=== PATIENT | female | born 1980 | race African-American/Black ===

== ENCOUNTER 2017-06-02 22:27 | Emergency (ER) | payer OTHER ==
[~2017-06-02] VITALS: Ht 167.6 cm; Wt 87.7 kg
[2017-06-02 22:30] VITALS: Ht 167.6 cm; Wt 87.7 kg
--- NOTE | 2017-06-03 00:01 | ERD ---
ER Documentation Chief Complaint Chief Complaint vag bleeding today, denies HPI 36-year-old female, presents to the emergency department complaining of 3 months of mild vaginal spotting associated with mild intermittent cramping pelvic pain. The patient has had multiple negative tests at home. Denies fevers, chills, abdominal pain, no vaginal discharge. ROS A 12-point review of systems was performed and negative other than presented in the history of present illness. SYSTEMIC symptoms: no fever, chills, no night sweats, no weight loss EYE symptoms: No blurred vision, no eye discharge OTOLARYNGEAL symptoms: No hearing loss. No ear pain, no sore throat CARDIOVASCULAR symptoms: No chest pain or discomfort, no palpitations. PULMONARY symptoms: No dyspnea, no cough, no wheezing. GASTROINTESTINAL symptoms: No abdominal pain, no nausea, no vomiting, no diarrhea MUSCULOSKELETAL symptoms: No arthralgias, no muscle aches. NEUROLOGY symptoms: No confusion, no syncope, no numbness or tingling. SKIN: No rashes Medications Home Meds Active Scripts Ibuprofen* (Motrin*) 600 Mg Tab, 600 MG PO Q6H Y for PAIN AND OR ELEVATED TEMP, #30 TAB Prov:NELSY BOYD MD 06/03/17 Allergies Allergies: Coded Allergies: No Known Allergy (Unverified , 06/02/17) PMhx/Soc Medical and Surgical Hx: pt denies Surgical Hx Hx Neurological Disorder: No Hx Respiratory Disorders: No Hx Cardiac Disorders: Yes (HTN) Hx Psychiatric Problems: No Hx Miscellaneous Medical Probl: Yes (DM, CHLAMYDIA) Hx Alcohol Use: Yes Hx Substance Use: Yes (MARIJUANA) Hx Tobacco Use: No Smoking Status: Never smoker Physical Exam Vitals Vital Signs Date Time Temp Pulse Resp B/P Pulse Ox O2 Delivery O2 Flow Rate FiO2 06/02/17 22:30 97.4 98 20 154/79 98 Physical Exam Patient is in no acute distress, vital signs stable. Alert and fully oriented. EYES: PERRLA, EOMI, Sclera and conjunctiva appear normal. EARS: Canals clear, tympanic membranes WNL THROAT: Normal oropharynx. NECK: Supple, No lymphadenopathy. Full ROM without pain or tenderness. HEART: RRR, no rubs, murmurs, clicks or gallops. LUNGS: Clear to auscultation. ABDOMEN: Soft, non-tender without masses or hepatosplenomegaly. EXTREMITIES: No edema bilaterally. BACK: Full ROM, no deformity, normal back exam NEURO: Cranial nerves grossly intact, no motor or sensory deficit Results 24 hrs Laboratory Tests Test 06/03/17 00:19 Bedside Urine pH (LAB) 7.0 Bedside Urine Protein (LAB) Negative Bedside Urine Glucose (UA) >=1.0% Bedside Urine Ketones (LAB) Negative Bedside Urine Blood 1+ Bedside Urine Nitrite (LAB) Negative Bedside Urine Leukocyte Esterase (L Negative [place] [id number] Radiology Main Line: [phone] DIAGNOSTIC IMAGING REPORT Patient: PRAKASH NICOLE : 1980 Age: 36 Sex: F MR #: [id number] DOS: 06/03/17 2348 Ordering MD: NELYS BOYD MD Location: [facility] Room/Bed: PROCEDURE: US Pelvis. CLINICAL INDICATION: Pelvic pain, abnormal uterine bleeding. Last menstrual period 05/26/2017 TECHNIQUE: Multiple sonographic images of the pelvis were obtained utilizing a transabdominal and endovaginal technique. The images were reviewed on a PACS workstation. COMPARISON: None. FINDINGS: The uterus is retroverted and measures 7.2 x 4 x 5 cm and is unremarkable. The thickness of the endometrium equals 3.4 mm. The right ovary measures 3.1 x 2.3 x 2.6 cm and is unremarkable. The left ovary measures 3.8 x 3 x 2.3 cm and is unremarkable. Color flow and spectral analysis demonstrates normal arterial flow in both ovaries. No adnexal mass or free intrapelvic fluid is seen. IMPRESSION: No abnormality seen. Please see above. RPTAT: HJES .Donn Spring MD, MD Date Time Electronically viewed and signed by .Donn Spring MD, MD on 06/03/2017 01:25 .S/ CC: NELSY BOYD MD Procedures/MDM 36-year-old female, previously healthy, presents to the emergency department complaining of mild intermittent vaginal spotting for 3 months, test negative. Vital signs stable, Physical exam unremarkable. Differential diagnosis include but not limited to: , menopause, anovulatory bleeding, polyps, uterine fibroid, endometrial hyperplasia. Radiology: Normal pelvic ultrasound Physical examination and clinical presentation consistent most likely with abnormal uterine bleeding. During the ED course the patient remained stable, no new complaints. Results and clinical impression discussed with patient who agrees with management. The patient is stable to be treated outpatient and will be discharged home with a Rx for ibuprofen, some side effects of prescribed medications (headache, rash, nausea, vomiting, diarrhea, drowsiness, habituation , bleeding, hypertension, interactions with other medications) were reviewed. The patient was instructed to follow up with the primary care provider in the next 48h. If symptoms persist, worsen or new symptoms develop, then patient should return to the ED immediately. Instructions explained and given directly by me to the patient with acknowledgment and demonstrated understanding. Disclaimer: Inadvertent spelling and grammatical errors are likely due to EHR/ dictation software use and do not reflect on the overall quality of patient care. Also, please note that the electronic time recorded on this note does not necessarily reflect the actual time of the patient encounter. Departure Diagnosis: Primary Impression: Abnormal uterine bleeding (AUB) Condition: Stable Additional Instructions: Call your primary care doctor TOMORROW for an appointment during the next 1-2 days. See the doctor sooner or return here if your condition worsens before your appointment time. Thank you very much for allowing us to participate in your care. Your health and safety is our top priority at [facility]. Have prescriptions filled and follow precisely the directions on the label. Follow-up with primary care provider during the next 4 days and bring all the information and medications prescribed. If illness has not improved in 2 days, then make an appointment with primary care provider. If the provider is unavailable, return to the Emergency Department immediately. NELSY BOYD MD Jun 03, 2017 00:01
[2017-06-03 00:18] LABS: URINE BLOOD (Dip) POC 1+ (NEGATIVE)
--- NOTE | 2017-06-03 01:25 | RADRPT ---
PROCEDURE: US Pelvis. CLINICAL INDICATION: Pelvic pain, abnormal uterine bleeding. Last menstrual period 05/26/2017 TECHNIQUE: Multiple sonographic images of the pelvis were obtained utilizing a transabdominal and endovaginal technique. The images were reviewed on a PACS workstation. COMPARISON: None. FINDINGS: The uterus is retroverted and measures 7.2 x 4 x 5 cm and is unremarkable. The thickness of the endo metrium equals 3.4 mm. The right ovary measures 3.1 x 2.3 x 2.6 cm and is unremarkable. The left ov radha measures 3.8 x 3 x 2.3 cm and is unremarkable. Color flow and spectral analysis demonstrates no rmal arterial flow in both ovaries. No adnexal mass or free intrapelvic fluid is seen. IMPRESSION: No abnormality seen. Please see above. RPTAT: HJES .Donn Spring MD, MD Date Time Electronically viewed and signed by .Donn Spring MD, on 06/03/2017 01:25 .S/
[2017-06-03] MEDS ORDERED: IBUP-1542 PO (01:44)
[2017-06-03 02:31] VITALS: BP 146/78; PULSE 92; RESP 20; TEMP 97.4
== END 2017-06-03 02:33 | disposition home or self-care (01) ==
LOC: FTE 22:27
DX: N93.9 Abnormal uterine and vaginal bleeding, unspecified (principal); E11.9 Type 2 diabetes mellitus without complications; I10 Essential (primary) hypertension; R10.2 Pelvic and perineal pain
CPT/HCPCS: 76830; 76856; 81003; Z7502

== ENCOUNTER 2017-07-04 05:40 | Emergency (ER) | END 2017-07-04 11:52 | disposition home or self-care (01) ==

== ENCOUNTER 2017-09-09 20:38 | Emergency (ER) | END 2017-09-10 01:22 | disposition home or self-care (01) ==

== ENCOUNTER 2017-12-10 21:09 | Emergency (ER) | END 2017-12-11 01:55 | disposition home or self-care (01) ==

== ENCOUNTER 2017-12-16 12:36 | Emergency (ER) | END 2017-12-16 14:38 | disposition home or self-care (01) ==

== ENCOUNTER 2017-12-29 21:02 | Emergency (ER) | END 2017-12-30 00:38 | disposition home or self-care (01) ==

== ENCOUNTER 2018-02-01 10:43 | Emergency (ER) | END 2018-02-01 13:47 | disposition home or self-care (01) ==

== ENCOUNTER 2018-03-11 09:06 | Inpatient (IN) | END 2018-03-11 09:10 | disposition still patient (30) | DRG 770 ==

== ENCOUNTER 2018-03-11 09:08 | Inpatient (IN) | END 2018-03-15 16:30 | disposition home or self-care (01) | DRG 797 ==

== ENCOUNTER 2018-03-22 19:10 | Emergency (ER) | END 2018-03-22 23:49 | disposition home or self-care (01) ==

== ENCOUNTER 2018-03-24 19:56 | Observation (INO) | END 2018-03-25 20:00 | disposition home or self-care (01) ==

== ENCOUNTER 2018-06-28 13:34 | Emergency (ER) | payer OTHER ==
[~2018-06-28] VITALS: Ht 167.6 cm; Wt 83.2 kg
[~2018-06-28 13:34] MED LIST: DOCU-144 PO; FER325 PO; INSU100I27 SQ; LABE200T25 PO; LANT3I SC; NITR-58 PO
[2018-06-28 13:41] VITALS: BP 151/83; PULSE 100; RESP 18; Ht 167.6 cm; Wt 83.2 kg
[2018-06-28] MEDS ORDERED: ACYC800T5 PO (14:53)
--- NOTE | 2018-06-28 15:14 | ERD ---
ER Documentation Chief Complaint Chief Complaint bilateral vaginal labia minora pain/swelling X 2 days HPI 37-year-old female presenting with irritation to her labia. Patient states is been going on for the last few days. She noted some bumps on her labia today. She has a history of herpes. No new sexual partners. No vaginal discharge. No itching. Denies other medical problems. NKDA. Surgical history denies. Social history denies ROS All systems reviewed and are negative except as per history of present illness. Medications Home Meds Active Scripts Acyclovir* (Zovirax*) 800 Mg Tablet, 800 MG PO 5 TIMES DAILY for 7 Days, TAB Prov:SHAWNA GARRETT PA-C 06/28/18 Labetalol Hcl* (Labetalol Hcl*) 200 Mg Tablet, 300 MG PO BID for 30 Days, #90 TAB Prov:CHARLEEN MCFARLANE MD 03/25/18 Reported Medications Nitrofurantoin Monohyd Macrocr* (Macrobid*) 100 Mg Capsr, 100 MG PO BID, CAP FOR 7 DAYS, START DATE 03/23/18 03/24/18 Ferrous Sulfate* (Ferrous Sulfate*) 325 Mg Tabec, 325 MG PO BID, TAB 03/24/18 Docusate Sodium* (Colace*) 100 Mg Capsule, 100 MG PO BID, #60 CAP 03/24/18 Insulin Glargine* (Lantus*) 100 Unit/Ml Soln, 13 UNIT SC QHS, #1 VIAL 03/24/18 Insulin Detemir (Levemir Flextouch) 100 Unit/1 Ml Insuln.pen, 0 SQ BID, EA INJECT 20 UNITS-QAM, AND 10 UNITS-QPM 03/24/18 Allergies Allergies: Coded Allergies: No Known Allergy (Unverified , 03/24/18) PMhx/Soc History of Surgery: No Anesthesia Reaction: No Hx Neurological Disorder: No Hx Respiratory Disorders: Yes (Bronchitis ) Hx Cardiac Disorders: Yes (HTN) Hx Psychiatric Problems: No Hx Miscellaneous Medical Probl: No Hx Alcohol Use: Yes (Occasionally) Hx Substance Use: Yes (Marijuana ) Hx Tobacco Use: No Smoking Status: Current every day smoker FmHx Family History: No diabetes, No coronary disease, No other Physical Exam Vitals Vital Signs Date Temp Pulse Resp B/P (MAP) Pulse Ox O2 O2 Flow FiO2 Time Delivery Rate 06/28/18 97.8 100 18 151/83 98 13:41 (105) Physical Exam GENERAL: The patient is well-appearing, well-nourished, in no acute distress CHEST: Clear to auscultation bilaterally. There are no rales, wheezes or rhonchi. HEART: Regular rate and rhythm. No murmurs, clicks, rubs or gallops. No S3 or S4. SKIN: Open sores noted around the labia. No discharge. No swelling or erythema. No pustules. Results 24 hrs Laboratory Tests Test 06/28/18 14:25 POC Beta HCG, Qualitative NEGATIVE Procedures/MDM MDM: 37-year-old female presenting with irritation to the labia. I have low alaina picion for bacterial infection. Patient has herpes flare. I have low suspicion for acute abdominal emergency. Patient is discharged stricter precautions and told to follow-up with primary care within 1-2 days for close evaluation. To the ER. All questions answered at discharge Departure Diagnosis: Primary Impression: Herpes Condition: Stable Patient Instructions: Herpes Genitalis, Hsv: Type Ii Additional Instructions: FOLLOW UP WITH YOUR PRIMARY CARE PHYSICIAN TOMORROW.Return to this facility if you are not improving as expected. SHAWNA GARRETT PA-C Jun 28, 2018 15:14
== END 2018-06-28 15:20 | disposition home or self-care (01) ==
LOC: FTE 13:34
DX: A60.09 Herpesviral infection of other urogenital tract (principal); I10 Essential (primary) hypertension; F17.210 Nicotine dependence, cigarettes, uncomplicated; E11.9 Type 2 diabetes mellitus without complications; Z79.4 Long term (current) use of insulin
CPT/HCPCS: 81025; Z7502; 99283

== ENCOUNTER 2018-07-05 13:53 | Emergency (ER) | payer OTHER ==
[~2018-07-05] VITALS: Wt 89.0 kg
[~2018-07-05 13:53] MED LIST changes: +ACYC800T5 PO
[2018-07-05] MEDS ORDERED: SOD CHLORIDE 0.9% IV ONE (15:30)
[2018-07-05] MEDS ORDERED: ADMELOG SUBCUTANE (15:51)
[2018-07-05] MEDS ORDERED: LABE200T25 PO ×2 (15:52→16:53)
[2018-07-05] MEDS ORDERED: LEVO50TA7 PO (15:52)
[2018-07-05] MEDS ORDERED: INSU100I33 SC ×2 (15:52→16:53)
[2018-07-05] MEDS ORDERED: GABA100C14 PO (16:53)
[2018-07-05] MEDS ORDERED: INSULIN LISPRO 100 UNIT/ML SC (16:53)
[2018-07-05] MEDS ORDERED: [UNRECOGNIZED DRUG - CODE] MC (16:53)
[2018-07-05] MEDS ORDERED: INSULIN LISPRO 100 UNIT/ML VIAL SC ONE (17:00)
--- NOTE | 2018-07-05 17:02 | ERD ---
ER Documentation Chief Complaint Chief Complaint NUMBNESS JASMYNE FEET X MOS, PAIN RIGHT LEG,OFF MEDS X 1 MOS, HTN,DM HPI This a very pleasant 38-year-old female history of hypertension and diabetes who presents with multiple issues. She states that she has not been taking her blood pressure or diabetes medications for at least 1-2 months. The patient states that insurance issues and financial issues of the reasoning. The patient also describes a stocking and glove paresthesia and shooting electric pain to the bilateral feet right greater than left. This is also been for approximately 2 months. She denies any chest pain or shortness of breath, no headache. ROS All systems reviewed and are negative except as per history of present illness. Medications Home Meds Active Scripts Gabapentin* (Gabapentin*) 100 Mg Capsule, 100 MG PO TID, #90 CAP Prov:CRISTA COHEN MD 07/05/18 Blood-Glucose Meter (FREESTYLE SYSTEM) 1 Each Kit, EACH MC, #1 Prov:CRISTA COHEN MD 07/05/18 Labetalol Hcl* (Labetalol Hcl*) 200 Mg Tablet, 200 MG PO BID for 30 Days, TAB Prov:CRISTA COHEN MD 07/05/18 Insulin Glargine,Hum.rec.anlog (Basaglar Kwikpen U-100) 100 Unit/1 Ml Insuln.pen, 15 UNIT SC QAM for 30 Days, EA Prov:CRISTA COHEN MD 07/05/18 [Admelog 100UNIT/Ml] No Conflict Check, 5 UNIT SC TID PRN for Sliding scale protocol for 30 Days Prov:CRISTA COHEN MD 07/05/18 Reported Medications Levothyroxine Sodium* (Levothyroxine Sodium*) 50 Mcg Tablet, 50 MCG PO BEFORE BREAKFAST, #30 TAB 07/05/18 Labetalol Hcl* (Labetalol Hcl*) 200 Mg Tablet, 200 MG PO BID, TAB 07/05/18 Insulin Glargine,Hum.rec.anlog (Basaglar Kwikpen U-100) 100 Unit/1 Ml Insuln.pen, 10 UNITS SC QAM, EA 07/05/18 [Admelog] 5 UNIT No Conflict Check, 5 UNITS SUBCUTANE AC A 07/05/18 Discontinued Reported Medications Nitrofurantoin Monohyd Macrocr* (Macrobid*) 100 Mg Capsr, 100 MG PO BID, CAP FOR 7 DAYS, START DATE 03/23/18 03/24/18 Ferrous Sulfate* (Ferrous Sulfate*) 325 Mg Tabec, 325 MG PO BID, TAB 03/24/18 Docusate Sodium* (Colace*) 100 Mg Capsule, 100 MG PO BID, #60 CAP 03/24/18 Insulin Glargine* (Lantus*) 100 Unit/Ml Soln, 13 UNIT SC QHS, #1 VIAL 03/24/18 Insulin Detemir (Levemir Flextouch) 100 Unit/1 Ml Insuln.pen, 0 SQ BID, EA INJECT 20 UNITS-QAM, AND 10 UNITS-QPM 03/24/18 Discontinued Scripts Acyclovir* (Zovirax*) 800 Mg Tablet, 800 MG PO 5 TIMES DAILY for 7 Days, TAB Prov:SHAWNA GARRETT PA-C 06/28/18 Labetalol Hcl* (Labetalol Hcl*) 200 Mg Tablet, 300 MG PO BID for 30 Days, #90 TAB Prov:CHARLEEN MCFARLANE MD 03/25/18 Allergies Allergies: Coded Allergies: No Known Allergy (Unverified , 07/05/18) PMhx/Soc History of Surgery: Yes (D&C) Anesthesia Reaction: No Hx Neurological Disorder: No Hx Respiratory Disorders: Yes (Bronchitis ) Hx Cardiac Disorders: Yes (HTN) Hx Psychiatric Problems: No Hx Miscellaneous Medical Probl: Yes (DM type 2) Hx Alcohol Use: Yes (Occasionally) Hx Substance Use: Yes (Marijuana ) Hx Tobacco Use: Yes Smoking Status: Current some day smoker FmHx Family History: diabetes Physical Exam Vitals Vital Signs Date Temp Pulse Resp B/P (MAP) Pulse Ox O2 O2 Flow FiO2 Time Delivery Rate 07/05/18 98.2 90 18 174/103 99 14:00 (126) Physical Exam General: Well developed, well nourished, no acute distress Head: Normocephalic, atraumatic. Eyes: EOM intact ENT: Moist mucous membranes Neck: Full ROM Respiratory: No respiratory distress Cardiovascular: Well perfused distally Abdominal: Nondistended : Deferred MSK: No edema, no unilateral swelling, 5/5 strength well-perfused bilateral feet Neurologic: Alert and oriented, moving all extremities, normal speech, steady gait Skin: No rash Psych: Normal mood Result Diagram: 07/05/18 1529 07/05/18 1529 Results 24 hrs Laboratory Tests Test 07/05/18 15:17 07/05/18 15:20 07/05/18 15:29 07/05/18 15:35 Bedside Glucose 345 mg/dL Blood Gas Blood venous Specimen Source Arterial Blood 07/05/2018 3:20: Date Drawn 20 PM Arterial Blood VENOUS LINE Gas Puncture Site Elmer Test N/A Venous Blood pH 7.351 Venous Blood 45.5 mmHG pCO2 (Temp Corrected) Venous Blood pO2 20.4 mmHG (Temp Corrected) Venous Blood 24.6 mmol/L HCO3 Venous Blood 30.9 mmHG Oxygen Saturation Venous Blood -1.2 mmol/L Base Excess Venous Blood 12.0 g/dl Total Hemoglobin Venous Blood 30.6 % Oxyhemoglobin Venous Blood 0.8 % Methemoglobin Carboxyhemoglobi 0.2 % n Blood Gas 37.0 C Temperature Blood Gas ROOM AIR Modality FiO2 21.0 % Blood Gas M.D. Notified Whom Blood Gas 07/05/2018 3:28: Notified Time 56 PM White Blood 9.0 10^3/ul Count Red Blood Count 5.00 10^6/ul Hemoglobin 12.1 g/dl Hematocrit 38.4 % Mean Corpuscular 76.8 fl Volume Mean Corpuscular 24.2 pg Hemoglobin Mean Corpuscular 31.5 g/dl Hemoglobin Darling nt Red Cell 16.4 % Distribution Width Platelet Count 399 10^3/UL Mean Platelet 10.6 fl Volume Immature 0.300 % Granulocytes % Neutrophils % 68.1 % Lymphocytes % 21.1 % Monocytes % 8.3 % Eosinophils % 1.8 % Basophils % 0.4 % Nucleated Red 0.0 /100WBC Blood Cells % Immature 0.030 10^3/ul Granulocytes # Neutrophils # 6.1 10^3/ul Lymphocytes # 1.9 10^3/ul Monocytes # 0.7 10^3/ul Eosinophils # 0.2 10^3/ul Basophils # 0.0 10^3/ul Nucleated Red 0.0 10^3/ul Blood Cells # Urine Color STRAW Urine Clarity CLEAR Urine pH 5.0 Urine Specific 1.035 [place] Urine Ketones NEGATIVE mg/dL Urine Nitrite NEGATIVE mg/dL Urine Bilirubin NEGATIVE mg/dL Urine NEGATIVE mg/dL Urobilinogen Urine Leukocyte NEGATIVE Meron/ul Esterase Urine 1 /HPF Microscopic RBC Urine 1 /HPF Microscopic WBC Urine Hemoglobin 1+ mg/dL Urine Glucose 3+ mg/dL Urine Total 1+ mg/dl Protein Sodium Level 134 mmol/L Potassium Level 4.7 mmol/L Chloride Level 101 mmol/L Carbon Dioxide 24 mmol/L Level Anion Gap 9 Blood Urea 12 mg/dl Nitrogen Creatinine 0.52 mg/dl Est Glomerular > 60 mL/min Filtrat Rate mL/min Glucose Level 356 mg/dl Calcium Level 9.6 mg/dl Phosphorus Level 4.0 mg/dl Magnesium Level 1.9 mg/dl POC Beta HCG, NEGATIVE Qualitative Test 07/05/18 16:49 Bedside Glucose 239 mg/dL Current Medications Medications Dose Sig/Emma Start Time Status Last (Trade) Ordered Route PRN Stop Time Admin Dose Reason Admin Sodium 890 ml @ ONCE ONCE 07/05/18 DC 07/05/18 Chloride 890 mls/hr IV 15:30 15:34 07/05/18 16:29 Insulin 10 unit ONCE ONCE 07/05/18 07/05/18 Human SC 17:00 16:55 Lispro 07/05/18 17:01 (Humalog) Procedures/MDM LAB INTERPRETATION: * Hyperglycemia without evidence of diabetic ketoacidosis MEDICAL DECISION MAKING: Patient's blood pressure was elevated (>120/80) but appears stable without evidence of hypertensive emergency or urgency. The patient was counseled about the risks of hypertension and urged to pursue outpatient monitoring and therapy within a week with their primary care physician. Patient is hyperglycemic and needs DKA screening the low clinical concern for this process. ER COURSE: * My clinical pharmacy manager has evaluated the patient and called [facility] pharmacy to figure out which medication she takes is the patient does not recall the types of medication. Medications have been refilled that are consistent with the patient's insurance at this point. * Patient's blood pressure is improving. No indication to rapidly lower at this time given chronicity of elevation. Risks outweigh the benefits. * Patient will be restarted on labetalol. * Humalog provided for hyperglycemia CONSULTATION: [None] DISPOSITION PLAN: The patient does not have an identifiable emergent medical condition that warrants inpatient hospitalization at this time. The patient is deemed safe for discharge with outpatient follow-up. We discussed follow up with the patient's primary care doctor within 24 to 48 hours as needed. We also discussed return to the emergency room for worsening symptoms or worsening condition. Outpatient referral: [None required] Discharge meds: See EMR I added gabapentin for the patient's peripheral neuropathy Departure Diagnosis: Primary Impression: Diabetic neuropathy Diabetes mellitus type: other specified (including FERNANDO) Diabetes mellitus complication detail: with other neurological complication Qualified Codes: E13.49 - Other specified diabetes mellitus with other diabetic neurological complication Additional Impressions: Asymptomatic hypertensive urgency Hyperglycemia Condition: Stable Patient Instructions: Hyperglycemia (High Blood Sugar) Additional Instructions: Call your primary care doctor TOMORROW for an appointment during the next 1 WEEK.Tell the racing secretary that you were referred from this facility.See the doctor sooner or return here if your condition worsens before your appointment time. CRISTA COHEN MD Jul 05, 2018 17:02
[2018-07-05 17:05] VITALS: BP 185/102; PULSE 89; RESP 16
== END 2018-07-05 17:11 | disposition home or self-care (01) ==
LOC: E/R 13:53
DX: E13.49 Other specified diabetes mellitus with other diabetic neurological complication (principal); I16.0 Hypertensive urgency; I10 Essential (primary) hypertension; F17.210 Nicotine dependence, cigarettes, uncomplicated; Z79.4 Long term (current) use of insulin
CPT/HCPCS: 36415; 80048; 81001; 81025; 82803; 82962; 83735; 84100; 85025; 96372; J1815; J7030; Z7502

== ENCOUNTER 2018-08-29 12:31 | Emergency (ER) | payer OTHER ==
[~2018-08-29] VITALS: Ht 167.6 cm; Wt 77.3 kg
[~2018-08-29 12:31] MED LIST changes: -ACYC800T5 PO; +ADMELOG SUBCUTANE; -DOCU-144 PO; -FER325 PO; +GABA100C14 PO; -INSU100I27 SQ; +INSU100I33 SC; +INSULIN LISPRO 100 UNIT/ML SC; -LANT3I SC; +LEVO50TA7 PO; -NITR-58 PO; +[UNRECOGNIZED DRUG - CODE] MC
[2018-08-29 12:36] VITALS: Ht 167.6 cm; Wt 77.3 kg
[2018-08-29] MEDS ORDERED: FUROSEMIDE 40 MG INJ IV STA (13:12)
[2018-08-29] MEDS ORDERED: INSU100I12 SQ (14:22)
[2018-08-29] MEDS ORDERED: METF-849 PO (14:23)
[2018-08-29] MEDS ORDERED: LISI-471 PO (15:02)
--- NOTE | 2018-08-29 15:09 | ERD ---
ER Documentation Chief Complaint Chief Complaint Leg swelling possible HIV exposure HPI This is a 38-year-old female who is here because she has chronic lower extremity edema off and on. 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 She says at the end of the night she has a lot of leg swelling and that when she lays flat for a while like with sleeping she will wake up with legs being relatively normal. She says this is been going on for years but lately has been getting a bit worse and will not resolve to baseline in the morning. She has no chest pain shortness of breath abdominal pain dyspnea on exertion orthopnea. She also found that her boyfriend had an HIV medication in his pants she is asking that we test her here. She does have unprotected sex with him and she has not confronted the boyfriend yet about finding the medication in his pocket ROS All systems reviewed and are negative except as per history of present illness. Medications Home Meds Active Scripts Lisinopril* (Lisinopril*) 20 Mg Tablet, 20 MG PO DAILY, #30 TAB Prov:MOUSTAPHA BOTELLO DO 08/29/18 Blood-Glucose Meter (FREESTYLE SYSTEM) 1 Each Kit, EACH MC, #1 Prov:CRISTA COHEN MD 07/05/18 Labetalol Hcl* (Labetalol Hcl*) 200 Mg Tablet, 200 MG PO BID for 30 Days, TAB Prov:CRISTA COHEN MD 07/05/18 Reported Medications Metformin* (Glucophage*) 500 Mg Tab, 500 MG PO WITH BREAKFAST DINNE, #30 TAB 08/29/18 Insulin Lispro (Humalog Kwikpen U-100) 100 Unit/1 Ml Insuln.pen, 0-12 UNIT SQ PER SLIDING SCALE, EA 08/29/18 Labetalol Hcl* (Labetalol Hcl*) 200 Mg Tablet, 200 MG PO BID, TAB 07/05/18 Insulin Glargine,Hum.rec.anlog (Basaglar Kwikpen U-100) 100 Unit/1 Ml Insuln.pen, 10 UNITS SC QAM, EA 07/05/18 Discontinued Reported Medications Levothyroxine Sodium* (Levothyroxine Sodium*) 50 Mcg Tablet, 50 MCG PO BEFORE BREAKFAST, #30 TAB 07/05/18 [Admelog] 5 UNIT No Conflict Check, 5 UNITS SUBCUTANE AC A 07/05/18 Discontinued Scripts Gabapentin* (Gabapentin*) 100 Mg Capsule, 100 MG PO TID, #90 CAP Prov:CRISTA COHEN MD 07/05/18 Insulin Glargine,Hum.rec.anlog (Basaglar Kwikpen U-100) 100 Unit/1 Ml Insuln.pen, 15 UNIT SC QAM for 30 Days, EA Prov:CRISTA COHEN MD 07/05/18 [Admelog 100UNIT/Ml] No Conflict Check, 5 UNIT SC TID PRN for Sliding scale protocol for 30 Days Prov:CRISTA COHEN MD 07/05/18 Allergies Allergies: Coded Allergies: No Known Allergy (Unverified , 08/29/18) PMhx/Soc History of Surgery: Yes (D&C) Anesthesia Reaction: No Hx Neurological Disorder: No Hx Respiratory Disorders: Yes (Bronchitis ) Hx Cardiac Disorders: Yes (HTN) Hx Psychiatric Problems: No Hx Miscellaneous Medical Probl: Yes (DM) Hx Alcohol Use: Yes (Occasionally) Hx Substance Use: No Hx Tobacco Use: No Smoking Status: Never smoker FmHx Family History: No coronary disease Physical Exam Vitals Vital Signs Date Temp Pulse Resp B/P (MAP) Pulse Ox O2 O2 Flow FiO2 Time Delivery Rate 08/29/18 97.6 97 21 178/113 100 Nasal 2.0 14:30 (134) Cannula 08/29/18 98 16 176/114 99 Nasal 2.0 13:35 (134) Cannula 08/29/18 Nasal 2 13:00 Cannula 08/29/18 97.6 99 20 191/100 100 12:36 (130) Physical Exam Const: Well-developed, well-nourished Head: Atraumatic, normocephalic Eyes: Normal Conjunctiva, PERRLA, EOMI, normal sclera, no nystagmus ENT: Normal External Ears, Nose and Mouth, moist mucus membranes. Neck: Full range of motion. No meningismus, no lymphadenopathy. Resp: Clear to auscultation bilaterally, no wheezing, rhonchi, rales Cardio: Regular rate and rhythm, no murmurs, S1 S2 present Abd: Soft, non tender x 4, non distended. Normal bowel sounds, no guard ing or rebound, no pulsitile abdominal masses or bruits Skin: No petechiae or rashes, no ecchymosis , no maculopapular rash Back: No midline or flank tenderness Ext: No cyanosis, mild edema to her feet, FROM x 4, normal inspection, neurovascularly intact x 4 Neur: Awake and alert, STR 5/5 x 4, sensation intact x 4, no focal findings, cerebellum intact Psych: Normal Mood and Affect Result Diagram: 08/29/18 1315 08/29/18 1315 Results 24 hrs Laboratory Tests Test 08/29/18 13:15 White Blood Count 8.2 10^3/ul Red Blood Count 5.07 10^6/ul Hemoglobin 12.4 g/dl Hematocrit 39.2 % Mean Corpuscular Volume 77.3 fl Mean Corpuscular Hemoglobin 24.5 pg Mean Corpuscular Hemoglobin Concent 31.6 g/dl Red Cell Distribution Width 16.5 % Platelet Count 374 10^3/UL Mean Platelet Volume 10.9 fl Immature Granulocytes % 0.500 % Neutrophils % 71.2 % Lymphocytes % 19.5 % Monocytes % 7.4 % Eosinophils % 0.9 % Basophils % 0.5 % Nucleated Red Blood Cells % 0.0 /100WBC Immature Granulocytes # 0.040 10^3/ul Neutrophils # 5.8 10^3/ul Lymphocytes # 1.6 10^3/ul Monocytes # 0.6 10^3/ul Eosinophils # 0.1 10^3/ul Basophils # 0.0 10^3/ul Nucleated Red Blood Cells # 0.0 10^3/ul Sodium Level 138 mmol/L Potassium Level 4.0 mmol/L Chloride Level 103 mmol/L Carbon Dioxide Level 26 mmol/L Anion Gap 9 Blood Urea Nitrogen 13 mg/dl Creatinine 0.56 mg/dl Est Glomerular Filtrat Rate mL/min > 60 mL/min Glucose Level 304 mg/dl Calcium Level 9.4 mg/dl Total Bilirubin 0.5 mg/dl Direct Bilirubin 0.00 mg/dl Indirect Bilirubin 0.5 mg/dl Aspartate Amino Transf (AST/SGOT) 21 IU/L Alanine Aminotransferase (ALT/SGPT) 23 IU/L Alkaline Phosphatase 127 IU/L B-Type Natriuretic Peptide 318 PG/ML Total Protein 7.0 g/dl Albumin 4.0 g/dl Globulin 3.00 g/dl Albumin/Globulin Ratio 1.33 HIV (1&2) Antibody NEGATIVE Current Medications Medications Dose Sig/Emma Start Time Status Last (Trade) Ordered Route PRN Stop Time Admin Dose Reason Admin Furosemide 40 mg ONCE STAT 08/29/18 DC 08/29/18 (Lasix) IV 13:12 13:35 08/29/18 13:13 Procedures/MDM Ordering MD: MOUSTAPHA BOTELLO DO Location: E/R Room/Bed: PROCEDURE: XR Chest. CLINICAL INDICATION: chest pain TECHNIQUE: Single frontal view of the chest was obtained COMPARISON: None FINDINGS: The heart and mediastinum are within normal limits. The lungs are clear. There is no pleural effusion or pneumothorax. RPTAT: AA IMPRESSION: No acute disease. .Enoc Arora MD, MD Date Time Electronically viewed and signed by .Enoc Arora MD, MD on 08/29/2018 13:53 .S/ CC: MOUSTAPHA BOTELLO DO [id number] Patient's HIV screen here is negative but I did discuss with her at length the need to follow-up with his testing and not to have sex with him anymore until she uncovers the true issue here with her boyfriend. I told her that she needs to be rechecked in 6 weeks 6 months and then 1 year. Patient is hypertensive here but asymptomatic she takes lisinopril but has not been taking it. I will give her a refill prescription for lisinopril. Discussed with her slightly elevated BNP and need to follow-up with primary because she needs an echocardiogram and that she may have uncontrolled hypertension leading to her swelling and a heart issue. Departure Diagnosis: Primary Impression: Pedal edema Additional Impression: Uncontrolled hypertension Condition: Stable Patient Instructions: Peripheral Edema, Bilateral, Hypertension, Established MOUSTAPHA BOTELLO DO Aug 29, 2018 15:09
[2018-08-29 15:45] VITALS: BP 145/105; PULSE 87; RESP 16
[2018-08-29] MEDS ORDERED: NICARDipine HCL 30 MG CAPSULE PO ONE (16:00)
== END 2018-08-29 15:45 | disposition home or self-care (01) ==
LOC: E/R 12:31
DX: M79.89 Other specified soft tissue disorders (principal); I10 Essential (primary) hypertension; E11.9 Type 2 diabetes mellitus without complications; Z79.4 Long term (current) use of insulin; Z20.6 Contact with and (suspected) exposure to human immunodeficiency virus [HIV]
CPT/HCPCS: 71045; 80053; 83880; 85025; 86703; 96374; J1940; Z7502; 93005

== ENCOUNTER 2018-09-10 02:10 | Emergency (ER) | payer OTHER ==
[~2018-09-10] VITALS: Ht 167.6 cm; Wt 80.9 kg
[~2018-09-10 02:10] MED LIST changes: -ADMELOG SUBCUTANE; -GABA100C14 PO; +INSU100I12 SQ; -INSULIN LISPRO 100 UNIT/ML SC; -LEVO50TA7 PO; +LISI-471 PO; +METF-849 PO
[2018-09-10 02:16] VITALS: BP 196/98; PULSE 95; RESP 20; Ht 167.6 cm; Wt 80.9 kg
--- NOTE | 2018-09-10 04:27 | ERD ---
ER Documentation Chief Complaint Chief Complaint VAGINAL PAIN, HX HSV, BELIEVES SHE IS HAVING A BREAKOUT HPI 38-year-old female, with history of genital HSV infection, presents to the emerg ency department, requesting treatment for a burning, erythematous, vesicular rash on her right labia that started 3 days ago. The patient denies dysuria, no fever, no abdominal pain, no vaginal discharge. ROS All systems reviewed and are negative except as per history of present illness. Medications Home Meds Active Scripts Hydrocodone/Acetaminophen ([place] 5-325 Tablet) 1 Each Tablet, 1 TAB PO QHS PRN for PAIN, #7 TAB Prov:NELSY BOYD MD 09/10/18 Acyclovir* (Zovirax*) 800 Mg Tablet, 800 MG PO 5 TIMES DAILY for 7 Days, TAB Prov:NELSY BOYD MD 09/10/18 Lisinopril* (Lisinopril*) 20 Mg Tablet, 20 MG PO DAILY, #30 TAB Prov:MOUSTAPHA BOTELLO DO 08/29/18 Blood-Glucose Meter (VurbSTYLE SYSTEM) 1 Each Kit, EACH MC, #1 Prov:CRISTA COHEN MD 07/05/18 Labetalol Hcl* (Labetalol Hcl*) 200 Mg Tablet, 200 MG PO BID for 30 Days, TAB Prov:CRISTA COHEN MD 07/05/18 Reported Medications Metformin* (Glucophage*) 500 Mg Tab, 500 MG PO WITH BREAKFAST DINNE, #30 TAB 08/29/18 Insulin Lispro (Humalog Kwikpen U-100) 100 Unit/1 Ml Insuln.pen, 0-12 UNIT SQ PER SLIDING SCALE, EA 08/29/18 Labetalol Hcl* (Labetalol Hcl*) 200 Mg Tablet, 200 MG PO BID, TAB 07/05/18 Insulin Glargine,Hum.rec.anlog (Basaglar Kwikpen U-100) 100 Unit/1 Ml Insuln.pen, 10 UNITS SC QAM, EA 07/05/18 Allergies Allergies: Coded Allergies: No Known Allergy (Unverified , 08/29/18) PMhx/Soc History of Surgery: Yes (D&C) Anesthesia Reaction: No Hx Neurological Disorder: No Hx Respiratory Disorders: Yes (Bronchitis ) Hx Cardiac Disorders: Yes (HTN) Hx Psychiatric Problems: No Hx Miscellaneous Medical Probl: Yes (DM) Hx Alcohol Use: Yes (Occasionally) Hx Substance Use: No Hx Tobacco Use: No Smoking Status: Never smoker Physical Exam Vitals Vital Signs Date Temp Pulse Resp B/P (MAP) Pulse Ox O2 O2 Flow FiO2 Time Delivery Rate 09/10/18 97.8 95 20 196/98 100 02:16 (130) Physical Exam Const: No acute distress Head: Atraumatic Eyes: Normal Conjunctiva ENT: Normal External Ears, Nose and Mouth. Neck: Full range of motion. No meningismus. Resp: Clear to auscultation bilaterally Cardio: Regular rate and rhythm, no murmurs Abd: Soft, non tender, non distended. Normal bowel sounds : Right labia with erythematous, vesicular coalescent rash. Skin: No petechiae or rashes Back: No midline or flank tenderness Ext: No cyanosis, or edema Neur: Awake and alert Psych: Normal Mood and Affect Results 24 hrs Current Medications Medications Dose Sig/Emma Start Time Status Last (Trade) Ordered Route PRN Stop Time Admin Dose Reason Admin Ondansetron 8 mg ONCE STAT 09/10/18 DC HCl (Zofran ODT 04:32 09/10/18 Odt) 04:33 Ondansetron 4 mg STK-MED 09/10/18 DC HCl (Zofran ONCE ODT 04:33 09/10/18 Odt) 04:34 Procedures/MDM Vital signs stable. Differential diagnosis considered include UTI, cystitis, yeast infection, vaginitis, bacterial vaginosis, pelvic inflammatory disease, STI's . Less likely malignancy or acute abdomen. During the ED course the patient remained stable, no new complaints. Results and clinical impression discussed with the patient who agrees with management. The patient is stable to be treated outpatient and will be discharged home; some side effects of prescribed medications (headache, rash, nausea, vomiting, diarrhea, drowsiness, habituation, bleeding, hypertension, interactions with other medications) were reviewed. Follow up with the primary care provider in the next 48h has been recommended. If symptoms persist, worsen or new symptoms develop, then patient should return to the ED immediately. Instructions explained and given directly by me to the patient with acknowledgment and demonstrated understanding. Disclaimer: Inadvertent spelling and grammatical errors are likely due to EHR/dictation software use and do not reflect on the overall quality of patient care. Also, please note that the electronic time recorded on this note does not necessarily reflect the actual time of the patient encounter. Departure Diagnosis: Primary Impression: HSV (herpes simplex virus) infection Condition: Stable Additional Instructions: Thank you very much for allowing us to participate in your care. Your health and safety is our top priority at [facility]. Call your primary care doctor TOMORROW for an appointment during the next 2-4 days and bring all the information and medications prescribed. Have prescriptions filled and follow precisely the directions on the label. If the symptoms get worse and your provider is unavailable, return to the Emergency Department immediately. NELSY BOYD MD Sep 10, 2018 04:27
[2018-09-10] MEDS ORDERED: ONDANSETRON (ODT) 4 MG TAB ODT STA (04:32)
[2018-09-10] MEDS ORDERED: ONDANSETRON (ODT) 4 MG TAB ODT ONE (04:33)
[2018-09-10] MEDS ORDERED: ACYC800T5 PO (04:43)
[2018-09-10] MEDS ORDERED: HYDR-4011 PO (04:43)
== END 2018-09-10 04:50 | disposition home or self-care (01) ==
LOC: FTE 02:10
DX: B00.9 Herpesviral infection, unspecified (principal); I10 Essential (primary) hypertension; E11.9 Type 2 diabetes mellitus without complications; Z79.4 Long term (current) use of insulin
CPT/HCPCS: 99283

== ENCOUNTER 2018-09-12 00:02 | Emergency (ER) | payer OTHER ==
[~2018-09-12] VITALS: Ht 160 cm; Wt 80.6 kg
[~2018-09-12 00:02] MED LIST changes: +ACYC800T5 PO; +HYDR-4011 PO
[2018-09-12 00:12] VITALS: Ht 160 cm; Wt 80.6 kg
--- NOTE | 2018-09-12 00:53 | ERD ---
ER Documentation Chief Complaint Chief Complaint R foot pain today, hx of fx last year in that foot, denies injury HPI The patient is a 38-year-old female, presenting to the ER because of chronic right foot pain for the last year, also complains of bilateral leg swelling for the last week intermittently. She has similar symptoms previously, has been on her feet and did not comply with her diet. Denies fever, chills, neck pain, chest pain, dyspnea, abdominal pain, vomiting, dysuria. Her anti-tensive medication lisinopril was increased from 10 mg to 20 mg 2 days ago. She does not smoke nor drink but does smoke marijuana Past medical history: Diabetes mellitus, hypertension, history of right foot fracture a year ago, diabetic neuropathy past surgical history: None ROS All systems reviewed and are negative except as per history of present illness. Medications Home Meds Active Scripts Hydrocodone/Acetaminophen ([place] 5-325 Tablet) 1 Each Tablet, 1 TAB PO QHS PRN for PAIN, #7 TAB Prov:NELSY BOYD MD 09/10/18 Acyclovir* (Zovirax*) 800 Mg Tablet, 800 MG PO 5 TIMES DAILY for 7 Days, TAB Prov:NELSY BOYD MD 09/10/18 Lisinopril* (Lisinopril*) 20 Mg Tablet, 20 MG PO DAILY, #30 TAB Prov:MOUSTAPHA BOTELLO DO 08/29/18 Blood-Glucose Meter (FREESTYLE SYSTEM) 1 Each Kit, EACH MC, #1 Prov:CRISTA COHEN MD 07/05/18 Labetalol Hcl* (Labetalol Hcl*) 200 Mg Tablet, 200 MG PO BID for 30 Days, TAB Prov:CRISTA COHEN MD 07/05/18 Reported Medications Metformin* (Glucophage*) 500 Mg Tab, 500 MG PO WITH BREAKFAST DINNE, #30 TAB 08/29/18 Insulin Lispro (Humalog Kwikpen U-100) 100 Unit/1 Ml Insuln.pen, 0-12 UNIT SQ PER SLIDING SCALE, EA 08/29/18 Labetalol Hcl* (Labetalol Hcl*) 200 Mg Tablet, 200 MG PO BID, TAB 07/05/18 Insulin Glargine,Hum.rec.anlog (Basaglar Kwikpen U-100) 100 Unit/1 Ml Insuln.pen, 10 UNITS SC QAM, EA 07/05/18 Allergies Allergies: Coded Allergies: No Known Allergy (Unverified , 08/29/18) PMhx/Soc History of Surgery: Yes (D&C) Anesthesia Reaction: No Hx Neurological Disorder: No Hx Respiratory Disorders: Yes (Bronchitis ) Hx Cardiac Disorders: Yes (HTN) Hx Psychiatric Problems: No Hx Miscellaneous Medical Probl: Yes (DM) Hx Alcohol Use: Yes (Occasionally) Hx Substance Use: No Hx Tobacco Use: No Physical Exam Vitals Vital Signs Date Temp Pulse Resp B/P (MAP) Pulse Ox O2 O2 Flow FiO2 Time Delivery Rate 09/12/18 80 169/71 03:01 (103) 09/12/18 171/116 02:17 (134) 09/12/18 89 18 217/121 100 Room Air 01:08 (153) 09/12/18 98.3 91 16 222/113 100 00:12 (149) Physical Exam Const: No acute distress. Head: Atraumatic. Eyes: Normal Conjunctiva. ENT: Normal External Ears, Nose and Mouth. Neck: Full range of motion. No meningismus. Resp: Clear to auscultation bilaterally. Cardio: Regular rate and rhythm. Abd: Soft, non distended, normal bowel sounds, non tender. Skin: No petechiae or rashes. Back: No midline or flank tenderness. Ext: Mild bilateral leg edema. Vague calf discomfort Neur: Awake and alert. No focal deficit Psych: Normal Mood and Affect. Results 24 hrs Laboratory Tests Test 09/12/18 00:55 09/12/18 01:39 Bedside Glucose 232 mg/dL POC Beta HCG, Qualitative NEGATIVE Current Medications Medications Dose Sig/Emma Start Time Status Last (Trade) Ordered Route PRN Stop Time Admin Dose Reason Admin Labetalol 20 mg ONCE ONCE 09/12/18 DC 09/12/18 HCl IV 01:30 09/12/18 02:07 (Labetalol) 01:31 Nifedipine 30 mg ONCE ONCE 09/12/18 DC 09/12/18 (Procardia PO 02:00 09/12/18 02:22 Xl) 02:01 Procedures/[place] [id number] Radiology Main Line: [phone] DIAGNOSTIC IMAGING REPORT Patient: PRAKASH NICOLE : 1980 Age: 38 Sex: F MR [facility]: [id number] [facility] #: [id number] DOS: 09/12/18 0123 Ordering MD: DAVIS JACKSON MD Location: E/R Room/Bed: PROCEDURE: US Lower extremity venous. CLINICAL INDICATION: Lower extremity pain TECHNIQUE: Multiple sonographic images of the bilateral lower extremity deep venous systems obtained utilizing grayscale, color-flow, compressive sonography and doppler imaging with augmentation. The images were reviewed on a PACS workstation. COMPARISON: None. FINDINGS: There is normal compressibility and flow within the bilateral common femoral, deep femoral, superficial femoral, posterior tibial, peroneal and popliteal veins. IMPRESSION: No sonographic evidence for deep venous thrombosis. RPTAT: [facility] Physician Jessica Date Time Electronically viewed and signed by Physician Jessica on 09/12/2018 02:09 xB/ CC: DAVIS JACKSON MD [id number] MEDICAL MAKING DECISION: The patient is a 38-year-old female, presenting with acute peripheral edema, acute elevated hypertension. She was treated with labetalol 20 mg IV and Procardia XL 30 mg p.o. with good blood pressure re sponse, is above outpatient follow-up The differential diagnoses considered include but are not limited to CHF, DVT, lymphedema, hepatic insufficiency, renal insufficiency Departure Diagnosis: Primary Impression: Accelerated hypertension Additional Impression: Peripheral edema Condition: Good Comments I discussed the findings with the patient. I advised the patient to follow-up wi th the primary physician in about 1-2 days, sooner if needed and return if any concern. Disclaimer: Inadvertent spelling and grammatical errors are likely due to EHR/dictation software use and do not reflect on the overall quality of patient care. Also, please note that the electronic time recorded on this note does not necessarily reflect the actual time of the patient encounter. DAVIS JACKSON MD Sep 12, 2018 00:53
[2018-09-12 01:08] VITALS: RESP 18
[2018-09-12] MEDS ORDERED: LABETALOL HCL 20MG INJ IV ONE (01:30)
[2018-09-12] MEDS ORDERED: NIFEdipine (XL) 30 MG TAB PO ONE (02:00)
[2018-09-12 03:01] VITALS: BP 169/71; PULSE 80
== END 2018-09-12 03:24 | disposition home or self-care (01) ==
LOC: E/R 00:02
DX: I10 Essential (primary) hypertension (principal); R60.0 Localized edema; E11.9 Type 2 diabetes mellitus without complications; Z79.4 Long term (current) use of insulin
CPT/HCPCS: 81025; 82962; 93970; 96374; Z7502; Z7610